=== PATIENT | female | born 1995 | race Caucasian/White ===

== ENCOUNTER 2017-07-07 13:22 | Emergency (ER) | payer MEDICAID ==
[~2017-07-07] VITALS: Ht 175.3 cm; Wt 125.0 kg
[2017-07-07 13:24] VITALS: BP 157/90; PULSE 76; RESP 20; TEMP 98.3; O2SAT 98
--- NOTE | 2017-07-07 14:50 | PD ---
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 She said she just been a week and with her boyfriend and when she came back she's had white vaginal discharge, constant, associated with itching, moderate severity, associated with some dysuria. She denies any fevers , chills or abdominal pain. She's had one sexual partner in the past 6 months. She's not been on any antibiotics recently. PFSH Past Medical History Bipolar Disorder: Yes Anxiety: Yes Depression: Yes Diminished Hearing: No Immunizations Current: Yes Influenza Vaccination: Yes ?: Not LMP: 06/26/2017 : 2 Para: 0 Miscarriage: 1 : 0 Past Surgical History Surgical History: No Previous Surgery Social History Alcohol Use: No Tobacco Use: Yes Substance Use: No Allergies-Medications (Allergen,Severity, Reaction): Coded Allergies: No Known Allergies (Verified , 07/07/17) Reported Meds & Prescriptions Reported Meds & Active Scripts Active No Active Prescriptions or Reported Medications Review of Systems Except as stated in HPI: all other systems reviewed are Neg Physical Exam Narrative GENERAL:Well appearing, no acute distress SKIN: Focused skin assessment warm and dry. HEAD: Atraumatic. Normocephalic. EYES: Pupils equal and round. No injection or drainage. ENT: Moist mucous membranes NECK: Trachea midline. CARDIOVASCULAR: Regular rate and rhythm. No murmur appreciated. RESPIRATORY: Clear to auscultation. Breath sounds equal bilaterally. GASTROINTESTINAL: Abdomen soft, non-tender, nondistended. 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 No cervical motion or adnexal tenderness. MUSCULOSKELETAL: No obvious deformities. NEUROLOGICAL: Awake and alert. No obvious cranial nerve deficits. Moving all extremities. PSYCHIATRIC: Appropriate mood and affect; insight and judgment normal. Data Data Last Documented VS Vital Signs Date Time Temp Pulse Resp B/P Pulse Ox O2 Delivery O2 Flow Rate FiO2 07/07/17 13:24 98.3 76 20 157/90 98 Room Air Orders Urinalysis - C+S If Indicated (8/12/17 14:26) Wet Prep Profile (07/07/17 14:26) Gc And Chlamydia Pcr (07/07/17 14:26) Labs Laboratory Tests Test 07/07/17 14:35 Urine Color YELLOW Urine Turbidity CLEAR Urine pH 6.5 Urine Specific [place] 1.017 Urine Protein NEG mg/dL Urine Glucose (UA) NEG mg/dL Urine Ketones NEG mg/dL Urine Occult Blood NEG Urine Nitrite NEG Urine Bilirubin NEG Urine Urobilinogen LESS THAN 2.0 MG/DL Urine Leukocyte Esterase TRACE Urine RBC 1 /hpf Urine WBC 6 /hpf Urine Squamous Epithelial 2 /hpf Cells Urine Amorphous Sediment RARE Urine Mucus FEW /lpf Microscopic Urinalysis Comment CULT NOT INDICATED Clue Cells (Wet Prep) NONE SEEN Vaginal Trichomonas (Wet Prep) NONE SEEN Vaginal Yeast (Wet Prep) NONE SEEN MDM Medical Decision Making Medical Screen Exam Complete: Yes Emergency Medical Condition: Yes Interpretation(s) Urinalysis: 6 white blood cells No clue cells No Trichomonas No yeast Differential Diagnosis Gonorrhea, chlamydia, yeast infection, vaginosis Narrative Course This is a 21-year-old female who presents to the emergency department with vaginal discharge dysuria and some vaginal irritation. On exam she has white vaginal discharge in the vault with no signs of PID. Wet prep is negative. Patient will be treated empirically for cervicitis and for mild urinary tract infection. She is well-appearing and appropriate for outpatient management. Diagnosis Primary Impression: Cervicitis Patient Instructions: General Instructions Additional Instructions: If you develop fever, persistent vomiting, back pain, or inability to eat return to the emergency department as your urine infection may have progressed to a kidney infection. Complete your antibiotics as prescribed. Stay well hydrated with Gatorade or water. Followup with your primary care physician in 2-3 days if your symptoms have not resolved. Med/Other Pt SpecificInfo: Prescription(s) given Scripts Nitrofurantoin Monohydrate Macrocrystals (Macrobid)100 Mg [id number] Mg PO BID 7 Days Ref 0 Prov:Rica Newman MD 07/07/17 Disposition: 01 DISCHARGE HOME Condition: Stable Rica Newman MD Jul 07, 2017 14:50
[2017-07-07 15:15] LABS: BLOOD, URINE NEG (NEG); COMMENT (UR) CULT NOT INDICATED; CULTURE IF INDICATED CULT NOT INDICATED; GLUCOSE,URINE NEG (NEG); KETONE, URINE NEG (NEG); MUCUS URINE FEW /lpf (OCC); NITRITE,URINE NEG (NEG); PH, URINE 6.5 (5.0-8.5); SQUAMOUS EPITHELIAL CELL URINE 2 /hpf (0-5); URINE COLOR YELLOW (YELLW/STRAW)
[2017-07-07] MEDS ORDERED: MACR100C2 PO (15:33)
[2017-07-07] MEDS ORDERED: cefTRIAXone 250 MG VIAL IM ONE (15:45)
[2017-07-07] MEDS ORDERED: AZITHROMYCIN PWD FOR SUSP 1 GM PACKET PO ONE (15:45)
[2017-07-07] MEDS ORDERED: LIDOCAINE HCL 1% 50 ML VIAL IM ONE (15:45)
[2017-07-07 19:21] LABS: CHLAMYDIA PCR NOT DETECTED (NOT DETECT); NEISSERIA PCR NOT DETECTED (NOT DETECT)
== END 2017-07-07 16:10 | disposition home or self-care (01) ==
LOC: NEPD 13:22
DX: N72 Inflammatory disease of cervix uteri (principal); R30.0 Dysuria; F31.9 Bipolar disorder, unspecified; F41.9 Anxiety disorder, unspecified; Z72.0 Tobacco use
CPT/HCPCS: 81001; 87210; 87491; 87591; 96372; 99284; J0696

== ENCOUNTER 2017-10-28 14:11 | Emergency (ER) | payer MEDICAID ==
[~2017-10-28] VITALS: Ht 175.3 cm; Wt 117.8 kg
[~2017-10-28 14:11] MED LIST: MACR100C2 PO
[2017-10-28 14:17] VITALS: BP 137/72; PULSE 102; RESP 16; TEMP 98.3; O2SAT 98
--- NOTE | 2017-10-28 14:27 | PD ---
HPI Chief Complaint: ENT Complaint Time Seen by Provider: 14:27 Travel History International Travel<30 days: No Contact w/Intl Traveler<30days: No Traveled to known affect area: No History of Present Illness HPI 21-year-old female presents to emergency room for evaluation of sore throat difficulty swallowing since yesterday. Patient has had subjective fever and chills. Pain is an 8 out of 10. Denies any cough or other upper respiratory symptoms. No symptoms reported. PFSH Past Medical History Bipolar Disorder: Yes Anxiety: Yes Depression: Yes Diminished Hearing: No Immunizations Current: Yes ?: Not LMP: 10/13/17 : 2 Para: 0 Miscarriage: 1 : 0 Past Surgical History Surgical History: No Previous Surgery Social History Alcohol Use: Yes (COUPLE TIMES PER MONTH) Tobacco Use: Yes ("COUPLE BLACK & MILDS DAILY") Substance Use: Yes (MARIJUANA) Allergies-Medications (Allergen,Severity, Reaction): Coded Allergies: No Known Allergies (Verified Adverse Reaction, Unknown, 10/28/17) Reported Meds & Prescriptions Reported Meds & Active Scripts Active Amoxicillin 875 Mg Tab 875 Mg PO BID 10 Days Review of Systems Except as stated in HPI: all other systems reviewed are Neg Physical Exam Narrative GENERAL: Well-nourished, well-developed F[place]ale patient in no acute distress SKIN: Focused skin assessment warm/dry. HEAD: Normocephalic. EYES: No scleral icterus. No injection or drainage. ENT: Mucosa pink and moist significant erythema, mild edema, and scattered exudate no uvular edema. No uvular, palatal, or tonsillar deviation. Airway patent. Nasal turbinates appear normal without nasal blood, purulent drainage or septal hematoma. NECK: Supple, trachea midline. Anterior cervical lymphadenopathy. CARDIOVASCULAR: Regular rate and rhythm without murmurs, gallops, or rubs. RESPIRATORY: Breath sounds equal bilaterally. No accessory muscle use. GASTROINTESTINAL: Abdomen soft, non-tender, nondistended. MUSCULOSKELETAL: No cyanosis, or edema. BACK: Nontender without obvious deformity. No CVA tenderness. Data Data Last Documented VS Vital Signs Date Time Temp Pulse Resp B/P (MAP) Pulse Ox O2 Delivery O2 Flow Rate FiO2 10/28/17 14:17 98.3 102 16 137/72 (93) 98 Orders Orders Group A Rapid Strep Screen (10/28/17 14:27) Dexamethasone Inj (Decadron Inj) (10/28/17 14:30) Ed Discharge Order (10/28/17 16:11) [facility] Medical Decision Making Medical Screen Exam Complete: Yes Emergency Medical Condition: Yes Medical Record Reviewed: Yes Differential Diagnosis Strep pharyngitis versus mono versus viral syndrome versus tonsillitis Narrative Course 21-year-old female presents to the emergency department for evaluation of sore throat. Patient has significant erythema, moderate edema, and exudate in the pharynx. She is given IM injection of Decadron. Strep screen is positive. Patient be started on oral antibiotics and encouraged to follow-up with primary care provider. She agrees to return immediately with any acute worsening of symptoms. Diagnosis Primary Impression: Strep pharyngitis Referrals: Primary Care Physician Patient Instructions: General Instructions, Pharyngitis (ED) Departure Forms: Tests/Procedures, Work Release Enter return to work date: Oct 31, 2017 Additional Instructions: Warm salt water gargles may help to alleviate symptoms Follow-up with a primary care provider Tylenol or ibuprofen as directed on the package as needed for fever and/or pain Return immediately with any acute worsening of symptoms Med/Other Pt SpecificInfo: Prescription(s) given Scripts Amoxicillin (Amoxicillin) 875 Mg Tab 875 MG PO BID for Infection for 10 Days, #20 TAB 0 Refills Prov: Loren Krishnan 10/28/17 Disposition: 01 DISCHARGE HOME Condition: Stable Loren Krishnan Oct 28, 2017 14:27
[2017-10-28] MEDS ORDERED: DEXAMETHASONE SOD PHOS 4 MG/ML VIAL IM ONE (14:30)
[2017-10-28] MEDS ORDERED: AMOX875T PO (16:12)
== END 2017-10-28 16:40 | disposition home or self-care (01) ==
LOC: PHEFT 14:11
DX: J02.0 Streptococcal pharyngitis (principal); B95.0 Streptococcus, group A, as the cause of diseases classified elsewhere; F32.9 Major depressive disorder, single episode, unspecified; F17.290 Nicotine dependence, other tobacco product, uncomplicated
CPT/HCPCS: 87880; 96372; 99284; J1100

== ENCOUNTER 2017-11-03 13:00 | Emergency (ER) | payer MEDICAID ==
[~2017-11-03] VITALS: Ht 175.3 cm; Wt 125.0 kg
[~2017-11-03 13:00] MED LIST changes: +AMOX875T PO; -MACR100C2 PO
[2017-11-03 13:02] VITALS: BP 132/80; PULSE 90; RESP 14; TEMP 99.7; O2SAT 95
[2017-11-03] MEDS ORDERED: SODIUM CHLOR 0.9% 1000 ML INJ 1,000 ML IV SCH (13:47)
--- NOTE | 2017-11-03 13:54 | PD ---
HPI Chief Complaint: General Weakness Time Seen by Provider: 13:43 Travel History International Travel<30 days: No Contact w/Intl Traveler<30days: No Traveled to known affect area: No History of Present Illness HPI Patient is a 21-year-old female who presents to emergency room with multiple complaints. Patient reports that for the past 6 days, she has been having subjective fevers and chills, reports that she has had sore throat, myalgias. Patient reports that her whole body is achy. Reports that she was recently diagnosed with strep pharyngitis, she is currently taking amoxicillin, reports no relief of symptoms. Patient reports that she has been feeling nauseous lately, reports that she has been having episodes of nausea and vomiting, reports that she has been able to drink water but doesn't have the "taste for food." Reports overall decreased oral intake over the past few days. Reports that she also has a productive cough - she is a smoker. Denies any sick contacts at home. Reports that she did not receive influenza vaccine this year. PFSH Past Medical History Bipolar Disorder: Yes Anxiety: Yes Depression: Yes Diminished Hearing: No Immunizations Current: Yes ?: Not LMP: 11/01/17 : 2 Para: 0 Miscarriage: 1 : 0 Past Surgical History Surgical History: No Previous Surgery Social History Alcohol Use: Yes (COUPLE TIMES PER MONTH) Tobacco Use: Yes ("COUPLE BLACK & MILDS DAILY") Substance Use: Yes (MARIJUANA) Allergies-Medications (Allergen,Severity, Reaction): Coded Allergies: No Known Allergies (Verified Adverse Reaction, Unknown, 10/28/17) Reported Meds & Prescriptions Reported Meds & Active Scripts Active Macrobid (Nitrofurantoin Monoh/Nitrofur Macro) 100 Mg Cap 100 Mg PO BID 10 Days Amoxicillin 875 Mg Tab 875 Mg PO BID 10 Days Review of Systems General / Constitutional: Positive: Fever, Chills Eyes: No: Visual changes HENT: Positive: Sore Throat, No: Headaches Cardiovascular: No: Chest Pain or Discomfort, Palpitations, Irregular Rhythm, Tachycardia, Syncope, Dyspnea on exertion Respiratory: Positive: Cough, No: Shortness of Breath, Wheezing Gastrointestinal: Positive: Nausea, Vomiting, No: Diarrhea, Abdominal Pain Genitourinary: No: Urgency, Frequency, Dysuria Musculoskeletal: No: Pain Skin: No Rash Neurologic: Positive: Weakness, No: Dizziness, Headache Psychiatric: No: Depression Endocrine: No: Polydipsia Hematologic/Lymphatic: No: Easy Bruising Physical Exam Narrative GENERAL: moderate distress SKIN: Focused skin assessment warm/dry. HEAD: Atraumatic. Normocephalic. EYES: Pupils equal and round. No scleral icterus. No injection or drainage. ENT: No nasal bleeding or discharge. Mucous membranes pink and moist. Patient with erythema with no swelling to posterior pharynx NECK: Trachea midline. No JVD. CARDIOVASCULAR: Regular rate and rhythm. No murmur appreciated. RESPIRATORY: No accessory muscle use. Clear to auscultation. Breath sounds equal bilaterally. GASTROINTESTINAL: Abdomen soft, non-tender, nondistended. Hepatic and splenic margins not palpable. MUSCULOSKELETAL: No obvious deformities. No clubbing. No cyanosis. No edema. NEUROLOGICAL: Awake and alert. No obvious cranial nerve deficits. Motor grossly within normal limits. Normal speech. PSYCHIATRIC: Appropriate mood and affect; insight and judgment normal. Data Data Last Documented VS Vital Signs Date Time Temp Pulse Resp B/P (MAP) Pulse Ox O2 Delivery O2 Flow Rate FiO2 11/03/17 13:45 70 11/03/17 13:02 99.7 14 132/80 (97) 95 Orders Orders Influenzae A/B Antigen (11/03/17 13:40) Complete Blood Count With Diff (11/03/17 13:47) Comprehensive Metabolic Panel (11/03/17 13:47) Urinalysis - C+S If Indicated (11/03/17 13:47) Iv Access Insert/Monitor (11/03/17 13:47) Ecg Monitoring (11/03/17 13:47) Oximetry (11/03/17 13:47) Ondansetron Inj (Zofran Inj) (11/03/17 14:00) Sodium Chlor 0.9% 1000 Ml Inj (Ns 1000 M (11/03/17 13:47) Sodium Chloride 0.9% Flush (Ns Flush) (11/03/17 14:00) Chest, Single Ap (11/03/17 13:47) Ed Urine Pregnancytest Poc (11/03/17 13:47) Sodium Chlor 0.9% 1000 Ml Inj (Ns 1000 M (11/03/17 14:00) Ketorolac Inj (Toradol Inj) (11/03/17 14:00) Dexamethasone Inj (Decadron Inj) (11/03/17 14:00) Urine Culture (11/03/17 13:52) Ceftriaxone Inj (Rocephin Inj) (11/03/17 15:00) Labs Laboratory Tests Test 11/03/17 13:50 11/03/17 13:52 White Blood Count 3.0 TH/MM3 Red Blood Count 4.58 MIL/MM3 Hemoglobin 13.6 GM/DL Hematocrit 39.8 % Mean Corpuscular Volume 86.9 FL Mean Corpuscular Hemoglobin 29.6 PG Mean Corpuscular Hemoglobin Concent 34.1 % Red Cell Distribution Width 16.2 % Platelet Count 139 TH/MM3 Mean Platelet Volume 8.5 FL Neutrophils (%) (Auto) 39.1 % Lymphocytes (%) (Auto) 45.1 % Monocytes (%) (Auto) 14.7 % Eosinophils (%) (Auto) 0.0 % Basophils (%) (Auto) 1.1 % Neutrophils # (Auto) 1.2 TH/MM3 Lymphocytes # (Auto) 1.3 TH/MM3 Monocytes # (Auto) 0.4 TH/MM3 Eosinophils # (Auto) 0.0 TH/MM3 Basophils # (Auto) 0.0 TH/MM3 CBC Comment DIFF FINAL Differential Comment Blood Urea Nitrogen 11 MG/DL Creatinine 0.85 MG/DL Random Glucose 83 MG/DL Total Protein 8.5 GM/DL Albumin 3.5 GM/DL Calcium Level 8.2 MG/DL Alkaline Phosphatase 56 U/L Aspartate Amino Transf (AST/SGOT) 59 U/L Alanine Aminotransferase (ALT/SGPT) 42 U/L Total Bilirubin 0.3 MG/DL Sodium Level 134 MEQ/L Potassium Level 4.0 MEQ/L Chloride Level 99 MEQ/L Carbon Dioxide Level 24.8 MEQ/L Anion Gap 10 MEQ/L Estimat Glomerular Filtration Rate 84 ML/MIN Urine Color YELLOW Urine Turbidity HAZY Urine pH 6.0 Urine Specific [place] 1.018 Urine Protein 100 mg/dL Urine Glucose (UA) NEG mg/dL Urine Ketones 10 mg/dL Urine Occult Blood LARGE Urine Nitrite POS Urine Bilirubin NEG Urine Urobilinogen LESS THAN 2.0 MG/DL Urine Leukocyte Esterase SMALL Urine RBC /hpf Urine WBC 41 /hpf Urine Squamous Epithelial Cells 3 /hpf Urine Bacteria MANY /hpf Urine Mucus MANY /lpf Microscopic Urinalysis Comment CULTURE INDICATED MDM Medical Decision Making Medical Screen Exam Complete: Yes Emergency Medical Condition: Yes Medical Record Reviewed: Yes Interpretation(s) Vital Signs Date Time Temp Pulse Resp B/P (MAP) Pulse Ox O2 Delivery O2 Flow Rate FiO2 11/03/17 13:45 70 11/03/17 13:02 99.7 90 14 132/80 (97) 95 Differential Diagnosis Influenza, viral syndrome, strep pharyngitis, electrolyte abnormality, pneumonia Narrative Course Patient is a 21-year-old female who presents to emergency room with multiple complaints. Reports that for the past 6 days, she has been having fevers, chills, sore throat, muscle aches. She is currently being treated with amoxicillin for strep pharyngitis. During the course of the patients emergency department visit, the patients history, examination, and differential diagnosis were reviewed with the patient. The patient was placed on a site monitor with oximetry and frequent blood pressure monitoring. The patient had an IV access obtained and blood work sent for analysis. The patient was initially provided IVF, IV zofran UA: Positive for small leuk esterase, 41wbc, many bacteria, 10 ketones, large blood, positive nitrite - urine culture sent, patient given a dose of IV rocephin, will discharge home with script for macrobid The patients laboratory studies were reviewed and remarkable for: CBC & BMP Diagram 11/03/17 13:50 Total Protein 8.5 H, Albumin 3.5, Calcium Level 8.2 L, Alkaline Phosphatase 56, Aspartate Amino Transf (AST/SGOT) 59 H, Alanine Aminotransferase (ALT/SGPT) 42, Total Bilirubin 0.3 Radiology studies were reviewed and remarkable for: Last Impressions Chest X-Ray 11/03/17 1347 Signed Impressions: Service Date/Time: Sunday, November 03, 2017 14:00 - CONCLUSION: No acute disease. Benito Gilbert MD Microbiology Date/Time Source Procedure Growth Status 11/03/17 15:00 Nasal Washing Influenza Types A,B Antigen (SILKE) - Final NEGATIVE FOR FLU A AND B ANTIGEN.... Complete 11/03/17 13:52 Urine Clean Catch Urine Culture Pending Received Patient reevaluated, patient reports that she is feeling much better at this time. I reviewed all labs and all studies as well as all findings with patient , she will follow up with all cultures from today. Discussed need for hydration and rest. Patient will follow-up with a primary care doctor, she will return to the emergency room as needed. Diagnosis Primary Impression: UTI (urinary tract infection) Qualified Codes: N30.01 - Acute cystitis with hematuria Additional Impressions: Dehydration Viral syndrome Patient Instructions: General Instructions Additional Instructions: Please provide patient with a copy of their lab work and studies at discharge* * Please follow up with your primary care doctor in 2-3 days Return to the ER if symptoms worsen or progress Return to the ER as needed Please drink plenty of fluids Med/Other Pt SpecificInfo: Prescription(s) given Scripts Ondansetron (Zofran) 4 Mg Tab 4 MG PO Q6HR Y for NAUSEA OR VOMITING, #20 TAB 0 Refills Prov: Anat Ken DO 11/03/17 Nitrofurantoin Monohydrate Macrocrystals (Macrobid) 100 Mg Cap 100 MG PO BID for Infection for 10 Days, #20 CAP 0 Refills Prov: Anat Ken DO 11/03/17 Disposition: 01 DISCHARGE HOME Condition: Stable Anat Ken DO Nov 03, 2017 13:54
[2017-11-03] MEDS ORDERED: SODIUM CHLOR 0.9% 1000 ML INJ 1,000 ML IV ONE (14:00)
[2017-11-03] MEDS ORDERED: KETOROLAC TROMETHAMINE 30 MG/ML (IVP) VIAL IV PUSH ONE (14:00)
[2017-11-03] MEDS ORDERED: DEXAMETHASONE SOD PHOS 20 MG/5 ML VIAL IV PUSH ONE (14:00)
[2017-11-03] MEDS ORDERED: SODIUM CHLORIDE 0.9% FLUSH 10 ML FLUSH IV FLUSH PRN (14:00)
[2017-11-03] MEDS ORDERED: ONDANSETRON HCL 4 MG/2 ML VIAL IVP ONE (14:00)
--- NOTE | 2017-11-03 14:21 | RADRPT ---
EXAM DATE/TIME: 11/03/2017 14:00 [place] COMPARISON: No previous studies available for comparison. INDICATIONS : Cough. Short of breath. Congestion. Weakness. Smoker. MEDICAL HISTORY : None. SURGICAL HISTORY : None. ENCOUNTER: Initial ACUITY: 1 week PAIN SCORE: 0/10 LOCATION: Bilateral chest FINDINGS: A single view of the chest demonstrates the lungs to be symmetrically aerated without evidence of mas s, infiltrate or effusion. The cardiomediastinal contours are unremarkable. Osseous structures are intact. CONCLUSION: No acute disease. Benito Gilbert MD on November 03, 2017 at 14:19 Board Certified Radiologist. This report was verified electronically.
[2017-11-03 14:29] LABS: AUTOMATED NEUTROPHIL # 1.2 TH/MM3 (1.8-7.7); BASOPHIL % 1.1 % (0.0-2.0); HEMATOCRIT 39.8 % (35.0-46.0); HEMO FLAGS DIFF FINAL; LYMPH % 45.1 % (9.0-44.0); LYMPHOCYTE # 1.3 TH/MM3 (1.0-4.8); MEAN CELL VOLUME 86.9 FL (80.0-100.0); MEAN CORPUSCULAR HEMOGLOBIN 29.6 PG (27.0-34.0); MEAN CORPUSCULAR HGB CONC 34.1 % (32.0-36.0); MONO % 14.7 % (0.0-8.0); NEUT % 39.1 % (16.0-70.0); PLATELET COUNT 139 TH/MM3 (150-450); RED BLOOD COUNT 4.58 MIL/MM3 (4.00-5.30); RED CELL DISTRIBUTION WIDTH 16.2 % (11.6-17.2)
[2017-11-03 14:31] LABS: BACTERIA, URINE MANY /hpf; BLOOD, URINE LARGE (NEG); COMMENT (UR) CULTURE INDICATED; CULTURE IF INDICATED CULTURE INDICATED; GLUCOSE,URINE NEG (NEG); KETONE, URINE 10 mg/dL (NEG); MUCUS URINE MANY /lpf (OCC); NITRITE,URINE POS (NEG); SQUAMOUS EPITHELIAL CELL URINE 3 /hpf (0-5); URINE COLOR YELLOW (YELLW/STRAW)
[2017-11-03] MEDS ORDERED: MACR100C2 PO (14:50)
[2017-11-03 14:52] LABS: ALT (GPT) 42 U/L (10-53); ANION GAP 10 MEQ/L (5-15); AST (GOT) 59 U/L (15-37); BICARBONATE 24.8 MEQ/L (21.0-32.0); BLOOD UREA NITROGEN 11 MG/DL (7-18); CHLORIDE 99 MEQ/L (98-107); GLOMERULAR FILTRATION RATE 84 ML/MIN (>89); SODIUM (NA) 134 MEQ/L (136-145)
[2017-11-03 14:55] LABS: ALKALINE PHOSPHATASE 56 U/L (45-117); TOTAL BILIRUBIN ADULT 0.3 MG/DL (0.2-1.0)
[2017-11-03] MEDS ORDERED: cefTRIAXone INJ 1,000 MG in SODIUM CHLORIDE 0.9% INJ 100 ML IV ONE (15:00)
[2017-11-03] MEDS ORDERED: ZOFR4TAB PO (16:03)
[2017-11-03 17:40] VITALS: BP 130/67; PULSE 78; RESP 15; O2SAT 98
== END 2017-11-03 17:50 | disposition home or self-care (01) ==
LOC: NEPD 13:00
DX: N30.01 Acute cystitis with hematuria (principal); B96.20 Unspecified Escherichia coli [E. coli] as the cause of diseases classified elsewhere; E86.0 Dehydration; B34.9 Viral infection, unspecified; F17.210 Nicotine dependence, cigarettes, uncomplicated
CPT/HCPCS: 71010; 80053; 81001; 84703; 85025; 87077; 87086; 87186; 87804; 96374; 96375; 99284; J0696; J1100; J1885; J2405; J7030

== ENCOUNTER 2017-11-07 10:50 | Emergency (ER) | payer MEDICAID ==
[~2017-11-07] VITALS: Ht 175.3 cm; Wt 115.0 kg
[~2017-11-07 10:50] MED LIST changes: +MACR100C2 PO; +ZOFR4TAB PO
[2017-11-07 11:01] VITALS: BP 131/84; PULSE 116; RESP 16; TEMP 98.3; O2SAT 97
--- NOTE | 2017-11-07 11:37 | PD ---
HPI Chief Complaint: Skin Problem Time Seen by Provider: 11:30 Travel History International Travel<30 days: No Contact w/Intl Traveler<30days: No Traveled to known affect area: No History of Present Illness HPI Patient comes emergency Department complaining of a pruritic rash that began last night. Patient states that she was recently on amoxicillin last dose 2 days ago and was given Zofran couple days ago in the ER. Patient denies any other known new allergen exposures. Denies any new soaps, lotions, detergents, medications, pets, furniture, or foods. Patient denies taking anything for this prior coming to the emergency department. Patient reports scratching the rash causes it to burn. Denies anything making it better. Denies any difficulty breathing, tongue swelling, or sensation of throat closing. Patient reports she has not picked up her antibiotic for her UTI yet. PFSH Past Medical History Bipolar Disorder: Yes Anxiety: Yes Depression: Yes Diminished Hearing: No Immunizations Current: Yes ?: Not LMP: 11/02/17 : 2 Para: 0 Miscarriage: 1 : 0 Social History Alcohol Use: Yes (COUPLE TIMES PER MONTH) Tobacco Use: Yes ("COUPLE BLACK & MILDS DAILY") Substance Use: Yes (MARIJUANA) Allergies-Medications (Allergen,Severity, Reaction): Coded Allergies: No Known Allergies (Verified Adverse Reaction, Unknown, 10/28/17) Reported Meds & Prescriptions Reported Meds & Active Scripts Active Pepcid (Famotidine) 20 Mg Tab 20 Mg PO BID 10 Days Prednisone (21) 10 mg tab Dose Pack (Prednisone) 10 Mg Pack 10 Mg PO DIRECTED Start 11/08/17 Review of Systems Except as stated in HPI: all other systems reviewed are Neg Physical Exam Narrative GENERAL: Well-developed, overly nourished, in no acute distress, and non-ill appearing. SKIN: Focused skin assessment warm and dry. Small blanching rash noted on torso bilateral upper extremities. There is no crepitus, drainage, induration, or fluctuation. HEAD: Atraumatic. Normocephalic. EYES: Pupils equal and round. EOMI. No scleral icterus. No injection or drainage. ENT: No nasal bleeding or discharge. Mucous membranes pink and moist. NECK: Trachea midline. No stridor. Supple. No nuclear rigidity. CARDIOVASCULAR: Regular rate and rhythm. No murmur appreciated. RESPIRATORY: No accessory muscle use. No respiratory distress. Clear to auscultation. Breath sounds equal bilaterally. Patient speaking in full sentences without difficulty. GMUSCULOSKELETAL: No obvious deformities. No clubbing. No cyanosis. No edema. Full range of motion. NEUROLOGICAL: Awake and alert. No obvious cranial nerve deficits. Motor grossly within normal limits. Normal speech. PSYCHIATRIC: Appropriate mood and affect; insight and judgment normal. Data Data Last Documented VS Vital Signs Date Time Temp Pulse Resp B/P (MAP) Pulse Ox O2 Delivery O2 Flow Rate FiO2 11/07/17 13:09 104 16 127/65 (85) 96 11/07/17 11:01 98.3 Orders Orders Methylprednisolone So Succ Inj (Solumedr (11/07/17 11:45) Diphenhydramine (Benadryl) (11/07/17 11:45) Famotidine (Pepcid) (11/07/17 11:45) MDM Medical Decision Making Medical Screen Exam Complete: Yes Emergency Medical Condition: Yes Differential Diagnosis Allergic reaction, viral rash, pruritic rash Narrative Course Appears allergic reaction. There is no airway involvement nor difficulty swallowing. Patient looks great. The patient is tolerating fluids. The patient looks great, the findings are minimal and due to non-progression of symptoms here the patient is safe to discharge home. The patient feels comfortable with plan and will return immediately if symptoms begin to worsen. The rash is not consistent with erythema multiforme at this time. The patient is to continue histamine 1 and 2 blockade as well as steroids. The patient was instructed to avoid potential precipitating factor and to follow up with their regular physician and or follow up with mission support specialist for definitive allergy testing. The patient agrees with plan. Patient in no obvious distress upon re-evaluation. Patient was asked if they wanted to speak to my attending, which the patient did not wish to do at this time. Any questions/concerns in reference to patient diagnosis/condition discussed and clarified prior to patient's discharge. Reinforced sheer importance of close follow up with patient's primary physician or primary care clinic. Instructed patient to return to ED immediately, if symptoms return/ worsen. Patient showed understanding of above instructions. Further instructions and recommendations were detailed in discharge paperwork. Patient ambulated without difficulty out of ED at discharge. Diagnosis Primary Impression: Allergic reaction Qualified Codes: T78.40XA - Allergy, unspecified, initial encounter Referrals: [facility] Patient Instructions: General Allergic Reaction (ED), General Instructions Additional Instructions: Follow-up with your primary care physician in 2-3 days for reevaluation and possible allergy testing. Take all medication as prescribed. Use over-the- counter Claritin or Zyrtec or Benadryl as needed for symptomatic relief. Follow instructions on the packaging. Return to the emergency department if symptoms get worse. Med/Other Pt SpecificInfo: Prescription(s) given Scripts Famotidine (Pepcid) 20 Mg Tab 20 MG PO BID for 10 Days, #20 TAB 0 Refills Prov: Joseph Rankin MD 11/07/17 Prednisone (21) 10 mg tab Dose Pack (Prednisone (21) 10 mg tab Dose Pack) 10 Mg Pack 10 MG PO DIRECTED for Inflammation, #1 DSPK 0 Refills Start 11/08/17 Prov: Joseph Rankin MD 11/07/17 Disposition: 01 DISCHARGE HOME Condition: Stable Bhargav Martin Nov 07, 2017 11:37
[2017-11-07] MEDS ORDERED: diphenhydrAMINE HCL 25 MG CAP PO ONE (11:45)
[2017-11-07] MEDS ORDERED: methylPREDNISolone SOD SUCC 125 MG/2 ML VIAL IM ONE (11:45)
[2017-11-07] MEDS ORDERED: FAMOTIDINE 20 MG TAB PO ONE (11:45)
[2017-11-07] MEDS ORDERED: FAMO1TAB37 PO (13:00)
[2017-11-07] MEDS ORDERED: PRED10PA PO (13:00)
[2017-11-07 13:09] VITALS: BP 127/65
== END 2017-11-07 13:10 | disposition home or self-care (01) ==
LOC: PHEFT 10:50
DX: T78.40XA Allergy, unspecified, initial encounter (principal); Z72.0 Tobacco use
CPT/HCPCS: 96372; 99284; J2930

== ENCOUNTER 2017-12-03 10:09 | Emergency (ER) | payer MEDICAID, OTHER ==
[~2017-12-03] VITALS: Ht 175.3 cm; Wt 113.0 kg
[~2017-12-03 10:09] MED LIST changes: -AMOX875T PO; +FAMO1TAB37 PO; -MACR100C2 PO; +PRED10PA PO; -ZOFR4TAB PO
[2017-12-03 10:14] VITALS: BP 145/82; PULSE 122; RESP 16; TEMP 98.2; O2SAT 98
[2017-12-03 10:27] LABS: BILIRUBIN, URINE NEG (NEG); BLOOD, URINE NEG (NEG); GLUCOSE,URINE NEG (NEG); KETONE, URINE NEG (NEG); NITRITE,URINE NEG (NEG); URINE LEUKOCYTE ESTERASE SMALL (NEG)
[2017-12-03 10:47] LABS: URINE COLOR YELLOW (YELLW/STRAW); WHITE BLOOD CELL CLUMPS OCC
[2017-12-03 10:48] LABS: BACTERIA, URINE RARE /hpf
--- NOTE | 2017-12-03 11:00 | PD ---
HPI . 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 Onset was about a week ago. Her symptoms wax and wane. States that the pain as a pressure-like sensation which she rates 6/10. She is unable to identify any modifying factors. She does admit to urinary frequency. She also reports some dyspareunia a couple of days ago. However, she states that her suprapubic discomfort was not exacerbated by sexual intercourse. PFSH Past Medical History Bipolar Disorder: Yes Anxiety: Yes Depression: Yes Diminished Hearing: No Immunizations Current: Yes : 2 Para: 0 Miscarriage: 1 : 0 Social History Alcohol Use: No (DENIES) Tobacco Use: No (DENIES) Substance Use: Yes (MARIJUANA) Allergies-Medications (Allergen,Severity, Reaction): Coded Allergies: No Known Allergies (Verified Adverse Reaction, Unknown, 12/03/17) Reported Meds & Prescriptions Reported Meds & Active Scripts Active Ibuprofen 800 Mg Tab 800 Mg PO Q8H PRN Flagyl (Metronidazole) 500 Mg Tab 500 Mg PO BID 7 Days Doxycycline Hyclate 100 Mg Cap 100 Mg PO BID Review of Systems Except as stated in HPI: all other systems reviewed are Neg General / Constitutional: No: Fever, Chills Gastrointestinal: Positive: Abdominal Pain, No: Nausea, Vomiting, Diarrhea Genitourinary: Positive: Frequency, No: Urgency, Dysuria, Discharge, Vaginal Bleeding Endocrine: Positive: Polydipsia Physical Exam Narrative GENERAL: Awake and alert and in no acute distress. SKIN: Warm and dry. HEAD: Normocephalic/atraumatic. EYES: Pupils are equal. Extraocular movements are intact. NECK: Normal range of motion. CARDIOVASCULAR: Regular rate and rhythm. RESPIRATORY: Nonlabored respirations. ABDOMEN: Bowel sounds positive. Nondistended. Soft. Mild right-sided abdominal tenderness with no guarding or rebound. : White discharge in the vaginal vault. Cervical motion did seem to cause some suprapubic discomfort. She did have some tenderness on bimanual exam. MUSCULOSKELETAL: Atraumatic. NEUROLOGICAL: Nonfocal. PSYCHIATRIC: Appropriate mood and affect. Data Data Last Documented VS Vital Signs Date Time Temp Pulse Resp B/P (MAP) Pulse Ox O2 Delivery O2 Flow Rate FiO2 12/03/17 10:14 98.2 122 16 145/82 (103) 98 Orders Orders Urinalysis - C+S If Indicated (12/03/17 10:12) Ed Urine Pregnancytest Poc (12/03/17 10:12) Urine Culture (12/03/17 10:15) Gc And Chlamydia Pcr (12/03/17 10:55) Wet Prep Profile (12/03/17 10:55) Ceftriaxone Inj (Rocephin Inj) (12/03/17 11:15) Complete Blood Count With Diff (12/03/17 11:12) Comprehensive Metabolic Panel (12/03/17 11:13) Lidocaine 1% Inj (Xylocaine 1% Inj) (12/03/17 11:30) Labs Laboratory Tests Test 12/03/17 10:15 12/03/17 11:10 12/03/17 11:30 Urine Collection Type CLEAN CATCH Urine Color YELLOW Urine Turbidity CLEAR Urine pH 7.0 Urine Specific Willis 1.015 Urine Protein NEG mg/dL Urine Glucose (UA) NEG mg/dL Urine Ketones NEG mg/dL Urine Occult Blood NEG Urine Nitrite NEG Urine Bilirubin NEG Urine Leukocyte Esterase SMALL Urine WBC 3-5 /hpf Urine WBC Clumps OCC Urine Squamous Epithelial Cells 3-5 /hpf Urine Bacteria RARE /hpf Microscopic Urinalysis Comment CULTURE INDICATED Clue Cells (Wet Prep) PRESENT Vaginal Trichomonas (Wet Prep) NONE SEEN Vaginal Yeast (Wet Prep) NONE SEEN White Blood Count 5.2 TH/MM3 Red Blood Count 4.23 MIL/MM3 Hemoglobin 11.9 GM/DL Hematocrit 35.9 % Mean Corpuscular Volume 84.9 FL Mean Corpuscular Hemoglobin 28.0 PG Mean Corpuscular Hemoglobin Concent 33.0 % Red Cell Distribution Width 17.4 % Platelet Count 275 TH/MM3 Mean Platelet Volume 7.2 FL Neutrophils (%) (Auto) 25.8 % Lymphocytes (%) (Auto) 62.6 % Monocytes (%) (Auto) 10.5 % Eosinophils (%) (Auto) 0.8 % Basophils (%) (Auto) 0.3 % Neutrophils # (Auto) 1.4 TH/MM3 Lymphocytes # (Auto) 3.2 TH/MM3 Monocytes # (Auto) 0.6 TH/MM3 Eosinophils # (Auto) 0.0 TH/MM3 Basophils # (Auto) 0.0 TH/MM3 CBC Comment DIFF FINAL Differential Comment Blood Urea Nitrogen 7 MG/DL Creatinine 0.64 MG/DL Random Glucose 87 MG/DL Total Protein 8.5 GM/DL Albumin 3.4 GM/DL Calcium Level 9.1 MG/DL Alkaline Phosphatase 70 U/L Aspartate Amino Transf (AST/SGOT) 94 U/L Alanine Aminotransferase (ALT/SGPT) 124 U/L Total Bilirubin 0.4 MG/DL Sodium Level 138 MEQ/L Potassium Level 4.1 MEQ/L Chloride Level 106 MEQ/L Carbon Dioxide Level 26.6 MEQ/L Anion Gap 5 MEQ/L Estimat Glomerular Filtration Rate 115 ML/MIN MDM Medical Decision Making Medical Screen Exam Complete: Yes Emergency Medical Condition: Yes Medical Record Reviewed: Yes Differential Diagnosis Differential diagnosis of abdominal pain includes but is not limited to gastritis, pancreatitis, hepatitis, gastroenteritis, gallbladder disease, constipation, urinary retention, UTI, peptic ulcer disease, diverticulitis or appendicitis Narrative Course This patient presents complaining with suprapubic abdominal pain. HCG is negative. UA>>small LE, 3-5 WBCs, occ WBC clump, rare bact. I will do a pelvic exam. Pelvic exam was not completely normal. She did have a discharge and she did have discomfort on bimanual exam. I will presume PID and treat her accordingly. The patient mentions concerned about her liver function studies. I have ordered a CBC and a comprehensive metabolic panel. I have also reviewed her recent records. She did have liver function studies checked on and they were basically unremarkable. wet prep>>clue cells CBC & BMP Diagram 12/03/17 11:30 Total Protein 8.5 H, Albumin 3.4, Calcium Level 9.1, Alkaline Phosphatase 70, Aspartate Amino Transf (AST/SGOT) 94 H, Alanine Aminotransferase (ALT/SGPT) 124 H, Total Bilirubin 0.4 The patient were instructed follow-up with her primary care provider for further evaluation of her elevated liver function studies. Diagnosis Primary Impression: Suprapubic pain Additional Impressions: Bacterial vaginosis Elevated liver function tests Referrals: [facility] Patient Instructions: General Instructions, Pelvic Inflammatory Disease (DC) Med/Other Pt SpecificInfo: Prescription(s) given Scripts Ibuprofen (Ibuprofen) 800 Mg Tab 800 MG PO Q8H Y for Pain/Inflammation, #60 TAB 0 Refills Prov: Kalpana Murillo MD 12/03/17 Metronidazole (Flagyl) 500 Mg Tab 500 MG PO BID for Infection for 7 Days, #14 TAB 0 Refills Prov: Kalpana Murillo MD 12/03/17 Doxycycline Hyclate (Doxycycline Hyclate) 100 Mg Cap 100 MG PO BID for Infection, #20 CAP 0 Refills Prov: Kalpana Murillo MD 12/03/17 Disposition: 01 DISCHARGE HOME Condition: Stable Kalpana Murillo MD Dec 03, 2017 11:00
[2017-12-03] MEDS ORDERED: cefTRIAXone 250 MG VIAL IM ONE (11:15)
[2017-12-03] MEDS ORDERED: LIDOCAINE HCL 1% 50 ML VIAL XX ONE (11:15)
[2017-12-03] MEDS ORDERED: DOXY100C PO (11:20)
[2017-12-03] MEDS ORDERED: METR-1 PO (11:20)
[2017-12-03] MEDS ORDERED: IBUP1TAB7 PO (11:20)
[2017-12-03] MEDS ORDERED: LIDOCAINE HCL 1% 20 ML VIAL INFIL ONE (11:30)
[2017-12-03 11:44] LABS: AUTOMATED NEUTROPHIL # 1.4 TH/MM3 (1.8-7.7); BASOPHIL % 0.3 % (0.0-2.0); EOSINOPHIL % 0.8 % (0.0-4.0); HEMATOCRIT 35.9 % (35.0-46.0); HEMOGLOBIN 11.9 GM/DL (11.6-15.3); LYMPH % 62.6 % (9.0-44.0); LYMPHOCYTE # 3.2 TH/MM3 (1.0-4.8); MEAN CELL VOLUME 84.9 FL (80.0-100.0); MEAN PLATELET VOLUME 7.2 FL (7.0-11.0); MONO % 10.5 % (0.0-8.0); MONOCYTE # 0.6 TH/MM3 (0-0.9); NEUT % 25.8 % (16.0-70.0); PLATELET COUNT 275 TH/MM3 (150-450); RED BLOOD COUNT 4.23 MIL/MM3 (4.00-5.30); RED CELL DISTRIBUTION WIDTH 17.4 % (11.6-17.2); WHITE BLOOD COUNT 5.2 TH/MM3 (4.0-11.0)
[2017-12-03 12:21] LABS: CHLORIDE 106 MEQ/L (98-107); SODIUM (NA) 138 MEQ/L (136-145)
[2017-12-03 12:24] LABS: ALBUMIN 3.4 GM/DL (3.4-5.0); BICARBONATE 26.6 MEQ/L (21.0-32.0); CALCIUM 9.1 MG/DL (8.5-10.1); GLUCOSE,RANDOM 87 MG/DL (74-106)
[2017-12-03 12:25] LABS: BLOOD UREA NITROGEN 7 MG/DL (7-18)
[2017-12-03 12:27] LABS: ALT (GPT) 124 U/L (10-53); AST (GOT) 94 U/L (15-37); CREATININE 0.64 MG/DL (0.50-1.00); GLOMERULAR FILTRATION RATE 115 ML/MIN (>89)
[2017-12-03 12:29] LABS: TOTAL BILIRUBIN ADULT 0.4 MG/DL (0.2-1.0); TOTAL PROTEIN 8.5 GM/DL (6.4-8.2)
[2017-12-03 12:30] LABS: ALKALINE PHOSPHATASE 70 U/L (45-117)
[2017-12-03 13:03] VITALS: BP 114/70
== END 2017-12-03 13:06 | disposition home or self-care (01) ==
LOC: PHED 10:09
DX: N76.0 Acute vaginitis (principal); R10.30 Lower abdominal pain, unspecified; R79.89 Other specified abnormal findings of blood chemistry; F31.9 Bipolar disorder, unspecified; F41.9 Anxiety disorder, unspecified; F12.90 Cannabis use, unspecified, uncomplicated
CPT/HCPCS: 80053; 81001; 84703; 85025; 87086; 87210; 87491; 87591; 96372; 99284; J0696